=== PATIENT | male | born 1995 | race Caucasian/White ===

== ENCOUNTER 2022-01-04 12:38 | Emergency (ER) | payer OTHER, SELFPAY ==
[2022-01-04 12:39] VITALS: BP 107/34; PULSE 99; RESP 16; TEMP 35.6; O2SAT 100; BMI 24.2
--- NOTE | 2022-01-04 14:05 | EDS_ITS ---
HPI History of Present Illness Chief Complaint: Abd Pain Informant: patient Onset/Context/Timing Onset: Today Context: Gradual Onset Current Severity: Mild Maximum Severity: Moderate Narrative Narrative: Patient presents with periumbilical cramping abdominal pain that started today. He reports having multiple loose bowel movements as well. Has had nausea but no vomiting. No fever or chills. He is very anxious and pacing in the room. [facility] Medical History Depression Allergy/AdvReac Type Severity Reaction Status Date / Time No Known Allergies Allergy Verified 01/04/22 12:38 Social History Smoking Status: Current every day smoker tobacco type: cigarettes ROS ROS ED Constitutional Constitutional ED: Denies chills or fever(s) Eyes Eyes: Denies change in vision or discharge from eye(s) ENT ENT ED: Denies discharge from eye(s), rhinorrhea or sore throat Cardiovascular Cardiovascular: Denies chest pain or palpitations Respiratory/Chest Respiratory/Chest: Denies cough or dyspnea Gastrointestinal Gastrointestinal: Reports abdominal pain, diarrhea and nausea; Denies vomiting Genitourinary Genitourinary ED: Denies difficulty urinating or dysuria Musculoskeletal Musculoskeletal: Denies back pain or extremity pain Integumentary Denies Abrasions or rash Neurologic Neurologic: Denies headache(s) or weakness Psychiatric Psychiatric: Reports anxiety; Denies depression Allergic/Immunologic Allergic/Immunologic ED: Denies lip swelling or urticaria EXAM Physical Exam Narrative Exam Narrative: Pacing in the room. Const Vital Signs: 01/04/22 12:39 Temperature 96.0 F L Temperature Source Temporal Pulse Rate 99 Respiratory Rate 16 Blood Pressure 107/34 L Blood Pressure Mean 58 Pulse Ox 100 Oxygen Delivery Method Room Air Positive well nourished and well developed General Appearance ED: well developed HEENT Reports normocephalic and head/scalp atraumatic Eyes PERRL and EOMs intact bilaterally Neck supple Chest Wall inspection of chest normal and palpation of chest normal Resp normal respiratory effort and clear to auscultation bilaterally Cardio regular rate and regular rhythm GI GI Narrative: Mild periumbilical tenderness location. Hypoactive bowel sounds. No guarding or rebound. Palpation: soft Back/Spine no CVA tenderness Extremity normal to inspection Neuro oriented x3 and no sensory deficits noted Sensorium / Orientation: alert Motor Exam: strength 5/5 throughout Psych Mood & Affect: anxious Skin no rashes or lesions noted MDM MDM MDM Narrative Medical decision making narrative: Patient was given Toradol, Zofran, Bentyl for his abdominal pain and nausea. He was given Ativan to help with his anxiety. IV fluids were ordered. Lab work and urinalysis obtained. Lab Data Attestation: I reviewed the patient's lab results. Labs: Laboratory Results - last 24 hr 01/04/22 01/04/22 01/04/22 13:48 14:19 14:19 WBC 21.1 H RBC 4.56 L Hgb 14.1 Hct 39.9 L MCV 87.5 MCH 30.9 MCHC 35.3 RDW Std Deviation 40.5 RDW Coeff of Tiesha 12.6 Plt Count 247 MPV 12.5 H Immature Gran % (Auto) 0.500 Neut % (Auto) 87.9 H Lymph % (Auto) 5.2 L [place] % (Auto) 6.1 Eos % (Auto) 0.0 Baso % (Auto) 0.3 Absolute Neuts (auto) 18.6 H Absolute Lymphs (auto) 1.09 Nucleated RBC % 0 Sodium 143 Potassium 3.5 Chloride 109 H Carbon Dioxide 24.0 Anion Gap 10 BUN 9 Creatinine 1.07 Estim Creat Clear Calc 104.62 Est GFR (MDRD) Af Amer 107 Est GFR (MDRD) Non-Af 89 BUN/Creatinine Ratio 8.4 L Glucose 131 H Calcium 9.8 Total Bilirubin 0.70 Direct Bilirubin 0.17 AST 17 ALT 17 Alkaline Phosphatase 89 Total Protein 8.1 Albumin 4.6 Globulin 3.5 Lipase 67 L Urine Color Yellow Urine Clarity Clear Urine pH 7.0 Ur Specific [place] 1.010 Urine Protein 15 H Urine Glucose (UA) Normal Urine Ketones 150 A* Urine Occult Blood Negative Urine Nitrite Negative Urine Bilirubin Negative Urine Urobilinogen Normal Ur Leukocyte Esterase Negative Urine RBC 0 SEEN Urine WBC 0 SEEN Ur Squamous Epith Cells 0 SEEN Urine Bacteria 0 SEEN Urine Mucus 0 SEEN Treatment and Re-Evaluation Narrative: White blood cell count is elevated at 21.1 with 87% neutrophils. Hemoglobin is 14.1. Chemistry studies unremarkable. LFTs and lipase normal. Urinalysis remarkable only for elevated ketones. No sign of infection. CT scan with contrast was ordered. I was asked by nursing staff to step back in as the patient was wanting to leave and have that performed as an outpatient. I did express to the patient that if concern for an acute infection with a significantly elevated white count. He is currently 2 hours from home and feels that he is a burden to those he is riding back home with. He would like to go home and follow-up with his doctor for an outpatient CAT scan. I did discuss with him that he may very well have an infection and if in fact this is appendicitis he can have a perforation and become very sick. He voices his understanding and agreement and wishes to sign out AMA. I encouraged him to return if he changes his mind or go immediately to an emergency room near his home tonight for further work-up. Discharge Plan Triage Chief Complaint: Abd Pain ED Provider: Ni Mcelroy Dx/Rx/DC Orders Clinical Impression: Abdominal pain, Leukocytosis, Anxiety Instructions: ED Abdominal Pain Unkn Cause Male... Primary Care Provider: Care Physician,No Primary Referrals: [facility] Doctor,Out of [Non-Staff] - Activity Restrictions/Additional Instructions: As discussed, your white blood cell count is elevated which has been concerned for an acute infection. Please follow-up with your doctor soon as possible or go to an emergency room near your home you can be further evaluated. A copy of your lab work is being sent with you. Disposition Disposition: Against Medical Advice
[2022-01-04] MEDS: LORazepam 2 MG/ML Syringe 1 MG IV (14:20)
[2022-01-04] MEDS: Ketorolac 30 MG/ML Syringe IV (14:20)
[2022-01-04] MEDS: Dicyclomine 20 MG/2 ML Vial IM (14:20)
[2022-01-04] MEDS: Ondansetron 4 MG/2 ML Vial IV ×2 (14:20→15:30)
[2022-01-04] MEDS: 0.9% Normal Saline 1,000 ML 1000 ML IV (14:20)
[2022-01-04 14:31] LABS: Bacteria 0 SEEN /hpf (None Seen); Mucous, Urine 0 SEEN /hpf (<or=2+); Red Blood Cells-Urine 0 SEEN /hpf (0-5); Squamous Epithelial Cells - UA 0 SEEN /hpf (0-5); White Blood Cells 0 SEEN /hpf (0-5)
[2022-01-04 14:38] LABS: Color, Urine Yellow (Yellow); Glucose, Dipstick Normal (Normal); Leukocyte Esterase-Dipstick Negative /ul (Negative); Nitrite-Dipstick Negative (Negative); Occult Blood-Urine Negative /ul (Negative); Protein-Dipstick 15 mg/dl (Negative); Urine Bilirubin Dipstick Negative (Negative); Urine Clarity Clear (Clear); Urine Urobilinogen Normal (Normal)
[2022-01-04 14:40] LABS: Ketone-Dipstick 150 mg/dl (Negative)
[2022-01-04 14:40] LABS: Absolute Lymphocyte Count 1.09 X10^3/uL (0.83-4.51); Absolute Neutrophil Count 18.6 X10^3/uL (2.0-7.7); Basophil# 0.06 X10^3/uL; Basophil% 0.3 % (0-1); Hematocrit 39.9 % (40-54); Hemoglobin 14.1 g/dL (13.0-16.5); Lymphocyte # 1.09 X10^3/ul (0.83-4.51); Lymphocyte % 5.2 % (19-41); Mean Corp Hgb Conc 35.3 g/dL (32-36); Mean Corpuscular Hgb 30.9 pg (27.0-32.0); Mean Corpuscular Volume 87.5 fL (80-94); Mean Platelet Vol. 12.5 fl (6.2-12.0); Monocyte# 1.29 X10^3/uL; Monocyte% 6.1 % (0-10); NRBC Flagged by Analyzer 0 % (0-5); Neutrophil # 18.55 X10^3/uL (2.7-7.7); Neutrophil % 87.9 % (47-70); Platelet Count 247 K/mm3 (150-450); RBC Distribution Width CV 12.6 % (11.6-14.6); RBC Distribution Width SD 40.5 fl (35.1-43.9); Red Blood Count 4.56 M/mm3 (4.6-6.2); White Blood Count 21.1 K/mm3 (4.4-11.0)
[2022-01-04 14:54] LABS: AST(SGOT) 17 U/L (15-37); Alanine Aminotransfer ALT/SGPT 17 U/L (16-61); Albumin, Serum 4.6 g/dL (3.2-5.0); Alkaline Phosphatase 89 U/L (45-117); Anion Gap 10 (5-15); BUN 9 mg/dL (7-18); BUN/Creat Ratio 8.4 RATIO (10-20); Bilirubin, Direct 0.17 mg/dL (0.00-0.30); Calcium,Total 9.8 mg/dL (8.5-10.1); Chloride 109 mmol/L (98-107); Creatinine, Serum 1.07 mg/dL (0.70-1.30); EST Glomerular Filtration Rate 89 mL/min (>60); Est Glom Filt Rate - Afr Amer 107 mL/min (>60); Estimated Creatinine Clearance 104.62 ml/min; Globulin 3.5 g/dL (2.2-4.2); Glucose 131 mg/dL (74-106); Lipase 67 U/L (73-393); Potassium 3.5 mmol/L (3.5-5.1); Protein, Total 8.1 g/dL (6.4-8.2); Sodium Level 143 mmol/L (136-145)
--- NOTE | 2022-01-04 15:35 | ED.RN ---
PT STATES HE DOES NOT WANT CT SCAN AND JUST NEEDS TO LEAVE, DR NOVAK MADE AWARE. AMA PAPERS SIGNED
== END 2022-01-04 15:35 | disposition left against medical advice (07) ==
PROVIDERS: Emergency Provider Emergency Medicine; Visit Provider Emergency Medicine
DX: R10.33 Periumbilical pain (principal); D72.829 Elevated white blood cell count, unspecified; F41.9 Anxiety disorder, unspecified; F17.210 Nicotine dependence, cigarettes, uncomplicated; Z53.29 Procedure and treatment not carried out because of patient's decision for other reasons
CPT/HCPCS: 80048; 80076; 81001; 83690; 85025; 96361; 96372; 96374; 96375; 96376; 99282; J7030; A4216; J2405